=== PATIENT | male | born 1970 | race Caucasian/White ===

== ENCOUNTER → 2018-04-18 | Outpatient (CLI) | payer MEDICAID | LOC: BMCIMAGING 15:19 | PROVIDERS: ATTEND Orthopaedic Surgery Hand Surgery | DX: M25.741 Osteophyte, right hand (principal); M25.531 Pain in right wrist; M25.511 Pain in right shoulder ==

== ENCOUNTER → 2018-05-24 | Outpatient (CLI) | payer MEDICAID | LOC: FIMAGING 18:59 | PROVIDERS: ATTEND Orthopaedic Surgery Hand Surgery | DX: M75.111 Incomplete rotator cuff tear or rupture of right shoulder, not specified as traumatic (principal); M24.811 Other specific joint derangements of right shoulder, not elsewhere classified ==